=== PATIENT | female | born 1945 | race Caucasian/White ===

== ENCOUNTER 2020-02-16 00:46 | Outpatient (CLI) | payer MEDICARE, MEDICAID, SELFPAY ==
--- NOTE | 2020-03-11 08:44 | W.ZIOMONITOR ---
Date of service: 03/11/20 Time of Service: 08:44 [facility] Orthotic/Prosthetic Practitioner Referring Provider:: Ivonne Indications:: PAF Note: This is a 13-day Holter monitor ordered for indication of paroxysmal atrial fibrillation. ?The patient was in normal sinus rhythm for majority of the recording with an average heart rate of 59 bpm. There was one episode of ventricular tachycardia lasting 6 beats. ?There were 541 episodes of supraventricular tachycardia with the longest lasting 25 seconds at a rate of 110 bpm. ?There were rare PACs and rare PVCs. ?There were no episodes of atrial fibrillation, no pauses greater than 3 seconds no evidence of high degree heart block. ?Triggered events were associated with sinus rhythm and single ectopic beats.
== END 2020-02-16 01:06 ==
PROVIDERS: PCP Internal Medicine; Visit Provider Surgery
DX: I48.0 Paroxysmal atrial fibrillation (principal); I47.2 Ventricular tachycardia; I47.1 Supraventricular tachycardia
CPT/HCPCS: 0296T

== ENCOUNTER 2020-03-11 08:00 | Outpatient (CLI) | payer MEDICARE, MEDICAID, SELFPAY | END 2020-03-11 08:20 | PROVIDERS: PCP Internal Medicine; Referring Provider Surgery; Visit Provider Internal Medicine Cardiovascular Disease | DX: I48.0 Paroxysmal atrial fibrillation (principal); I47.1 Supraventricular tachycardia; I47.2 Ventricular tachycardia | CPT/HCPCS: 0298T ==